=== PATIENT | female | born 1960 | race Asian ===

== ENCOUNTER 2021-07-19 01:06 | Inpatient (IN) | payer OTHER ==
[2021-07-19] VITALS (7 sets, daily range): BP systolic 106–128; BP diastolic 69–85
[~2021-07-19] VITALS: Ht 165.1 cm; Wt 59.9 kg
[2021-07-19] MEDS ORDERED: ONDANSETRON HCL/PF 4 MG/2 ML VIAL IVP PRN (01:30)
[2021-07-19] MEDS ORDERED: Z GUARD REMEDY 2 OZ OINT TP PRN (01:30)
[2021-07-19] MEDS ORDERED: ZOLPIDEM TARTRATE 5 MG TABLET PO PRN (01:30)
[2021-07-19] MEDS ORDERED: ACETAMINOPHEN 325 MG TABLET PO PRN (01:30)
--- NOTE | 2021-07-19 02:00 | NUR ---
TELE/RN ADMITTING NOTE RECEIVED REPORT FROM [facility] NIA CASTLE. PATIENT ARRIVED TO UNIT VIA GURNEY AND 2 EMT STAFF AT APPROX. 0120. PATIENT IS BEING ADMITTED FOR CHEST PAIN - WILL HAVE CARDIAC WORKUP AND STRESS TEST. PATIENT IS ALERT AND ORIENTED X 4. ABLE TO MAKE NEEDS KNOWN. DENIES PAIN AT THIS TIME. CONTINUES ON ROOM AIR WITH NO S/SX OF RESPIRATORY DISTRESS NOTED. IV ACCESS TO RIGHT AC #20G INTACT, PATENT AND SALINE LOCKED. TELE MONITOR CONNECTED WITH CURRENT READING SR HR 78. SKIN CHECK PERFORMED ON ADMISSION WITH NO SKIN ISSUES NOTED. PATIENT IS AMBULATORY WITH STEADY GAIT. PATIENT ORIENTED TO ROOM, CALL LIGHT AND UNIT. CALL LIGHT WITHIN REACH. ASPIRATION, FALL AND SAFETY PRECAUTIONS MAINTAINED. WILL CONTINUE TO MONITOR.
[2021-07-19] MEDS ORDERED: BUPR-96 PO (02:02)
[2021-07-19] MEDS: ENOXAPARIN SODIUM 40 MG/0.4 ML DISP.SYRIN SQ SCH ×2 (02:40→20:42)
--- NOTE | 2021-07-19 06:50 | NUR ---
TELE/RN CLOSING NOTE PATIENT CURRENTLY SLEEPING IN BED. ALERT AND ORIENTED X 4. ABLE TO MAKE NEEDS KNOWN. DENIES PAIN AT THIS TIME. CONTINUES ON ROOM AIR WITH NO S/SX OF RESPIRATORY DISTRESS NOTED. IV ACCESS TO RIGHT AC #20G INTACT, PATENT AND SALINE LOCKED. CONTINUES ON TELE MONITOR WITH CURRENT READING SR HR 63. CALL LIGHT WITHIN REACH. ASPIRATION, FALL AND SAFETY PRECAUTIONS MAINTAINED. WILL ENDORSE PLAN OF CARE TO ONCOMING SHIFT.
[2021-07-19 06:58] LABS: BASOPHILS % (AUTO) 0.8 % (0.0-2.0); EOSINOPHILS % (AUTO) 1.3 % (0.0-6.0); HEMATOCRIT 38 % (33-45); HEMOGLOBIN 12.7 g/dL (11.5-14.8); LYMPHOCYTES # (AUTO) 2.4 K/uL (0.8-4.8); LYMPHOCYTES % (AUTO) 40.5 % (20.0-44.0); MEAN CORPUSCULAR HGB CONC 33 g/dl (31.0-36.0); MEAN CORPUSCULAR VOLUME 97 fL (82-100); MONOCYTES # (AUTO) 0.4 K/uL (0.1-1.30); MONOCYTES % (AUTO) 7.2 % (2.0-12.0); NEUTROPHILS % (AUTO) 50.2 % (43.0-81.0); PLATELET COUNT (AUTO) 300 K/uL (150-450); RED BLOOD CELL COUNT(AUTO) 3.94 MIL/uL (4.0-5.2); WHITE BLOOD COUNT (AUTO) 5.9 K/uL (4.3-11.0)
[2021-07-19 07:27] LABS: ALBUMIN 3.6 g/dL (3.4-5.0); BILIRUBIN,TOTAL 0.5 mg/dL (0.2-1.0); CALCIUM, SERUM 8.8 mg/dL (8.5-10.1); CREATININE 0.7 mg/dL (0.6-1.3); MAGNESIUM 2.4 mg/dL (1.8-2.4); PHOSPHORUS 4.5 mg/dL (2.5-4.9); POTASSIUM 3.5 mmol/L (3.5-5.1)
[2021-07-19 07:35] LABS: THYROID STIMULATING HORMONE 3.24 uIU/mL (0.358-3.74)
--- NOTE | 2021-07-19 08:04 | NUR ---
TELE/RN OPENING NOTE RECEIVED PATIENT AWAKE. ALERT AND ORIENTED X 4. ABLE TO MAKE NEEDS KNOWN. DENIES PAIN AT THIS TIME. CONTINUES ON ROOM AIR WITH NO S/SX OF RESPIRATORY DISTRESS NOTED. IV ACCESS TO RIGHT AC #20G INTACT, PATENT AND SALINE LOCKED. CONTINUES ON TELE MONITOR WITH CURRENT READING SR HR 60'S. CALL LIGHT WITHIN REACH. ASPIRATION, FALL AND SAFETY PRECAUTIONS MAINTAINED. WILL CONTINUE TO MONITOR.
[2021-07-19] MEDS: ASPIRIN EC 81 MG TABLET.DR PO SCH (09:38)
[2021-07-19] MEDS ORDERED: METOPROLOL TARTRATE INJ 5 MG/5 ML AMPUL IVP PRN (11:30)
[2021-07-19] MEDS ORDERED: IOHEXOL-350 100 ML VIAL IV ONE (11:36)
[2021-07-19] MEDS ORDERED: IV NS 0.9% 250 ML IV ONE (11:37)
--- NOTE | 2021-07-19 11:45 | NUR ---
PATIENT FOR [facility]-AWAKE , ALERT IN NO ACUTE DISTRESS. DENIES CHEST PAIN AT THIS TIME. INSTRUCTED REGARDING PROCEDURE BY [employer] USED [employer] SUPERVISOR REGARDING PROCEDURE WITH FULL UNDERSTANDING.
--- NOTE | 2021-07-19 11:46 | NUR ---
TELE/RN NOTES- [facility] PATIENT WAS PICKED UP BY STAFF FOR A [facility]CA PROCEDURE. PATIENT IS ALERT AND ORIENTED X4, ABLE TO MAKE NEEDS KNOWN.
[2021-07-19] MEDS ORDERED: METOPROLOL TARTRATE INJ 5 MG/5 ML AMPUL ONE (11:53)
--- NOTE | 2021-07-19 11:55 | NUR ---
METOPROLOL 5 MG IVP FOR HR 65 GIVEN PER PROTOCOL.
--- NOTE | 2021-07-19 12:05 | NUR ---
PROCEDURE COMPLETED WITHOUT COMPLICATIONS. BACK TO FLOOR.
[2021-07-19] MEDS ORDERED: buPROPion SR 150 MG TABLET.ER PO SCH (12:30)
--- NOTE | 2021-07-19 19:34 | NUR ---
received in bed alert and orientated x4 smiling no chestpain or SOB noted or mentioned skin warm and dry SR on the monitor call light within her reach
[2021-07-19] MEDS ORDERED: ATORVASTATIN 40 MG TABLET PO SCH (22:00)
[2021-07-20] VITALS: BP 110/75
--- NOTE | 2021-07-20 04:59 | NUR ---
ENDING NOTES: ALERT AND ORIENTATED THIS 12 HOURS NO CHEST PAIN WHEN TALKING NO NOTED SHORT OF BREATH SMILING AND IN GOOD SPIRTIS MOVING ALL EXTREMITIES
[2021-07-20] MEDS: buPROPion SR 150 MG TABLET.ER PO SCH ×2 (06:53→07:05)
--- NOTE | 2021-07-20 07:30 | NUR ---
MS RN OPENING NOTES RECEIVED PATIENT AWAKE, SITTING ON BED AND A/O X4. ON ROOM AIR TOLERATING WELL. NO SOB NOTED. NOT IN DISTRESS. WITH NO COMPLAINTS OF PAIN AND DISCOMFORT AT THIS TIME. WITH IV ACCESS AT RIGHT AC G20, SALINE LOCKED, INTACT AND PATENT. SAFETY MEASURES IN PLACE. CALL LIGHT WITHIN REACH. BED ON LOWEST AND LOCKED POSITION, SIDE RAILS UP X2. WILL CONTINUE TO MONITOR.
[2021-07-20 08:00] VITALS: BP 109/72
[2021-07-20] MEDS: ASPIRIN EC 81 MG TABLET.DR PO SCH (08:42)
[2021-07-20 11:24] LABS: BASOPHILS % (AUTO) 0.9 % (0.0-2.0); HEMATOCRIT 40 % (33-45); HEMOGLOBIN 13.2 g/dL (11.5-14.8); LYMPHOCYTES # (AUTO) 1.4 K/uL (0.8-4.8); LYMPHOCYTES % (AUTO) 31.9 % (20.0-44.0); MEAN CORPUSCULAR HGB CONC 33 g/dl (31.0-36.0); MEAN CORPUSCULAR VOLUME 97 fL (82-100); MONOCYTES # (AUTO) 0.3 K/uL (0.1-1.30); MONOCYTES % (AUTO) 7.2 % (2.0-12.0); NEUTROPHILS # (AUTO) 2.6 K/uL (1.8-8.9); PLATELET COUNT (AUTO) 310 K/uL (150-450); RED BLOOD CELL COUNT(AUTO) 4.11 MIL/uL (4.0-5.2); WHITE BLOOD COUNT (AUTO) 4.4 K/uL (4.3-11.0)
[2021-07-20 12:24] LABS: CREATININE 0.7 mg/dL (0.6-1.3); MAGNESIUM 2.4 mg/dL (1.8-2.4); POTASSIUM 3.7 mmol/L (3.5-5.1)
--- NOTE | 2021-07-20 14:30 | NUR ---
MS POLICE AND FIRE DISPATCHER NOTES PATIENT IS FOR DISCHARGE PER DOCTOR AMANDA'S ORDER. FOR DISCHARGE TO HOME. DISCHARGE INSTRUCTION AND EDUCATION PROVIDED TO PATIENT AND EXPLAINED MEDICATIONS AND PRESCRIPTIONS. PATIENT VERBALIZED UNDERSTANDING. DISCHARGE FORM AND BELONGINGS LIST FORM SIGNED BY PATIENT. ALL BELONGINGS ACCOUNTED FOR. NAME WRIST BAND AND IV LINE REMOVED. ACCOMPANIED PATIENT TO THE [facility] IN STABLE CONDITION AND LEFT VIA GRAB. MD AND CHARGE NURSE ARE AWARE OF THE DISCHARGE.
== END 2021-07-20 14:30 | disposition home or self-care (01) | DRG 203 ==
LOC: TELE 01:06 → MED 07-20 10:39
PROVIDERS: ADMIT Nurse Practitioner Acute Care; ATTEND Student in an Organized Health Care Education/Training Program
DX: R07.89 Other chest pain (principal); E78.5 Hyperlipidemia, unspecified; R73.03 Prediabetes; R91.1 Solitary pulmonary nodule; K76.9 Liver disease, unspecified
CPT/HCPCS: 36415; 75574; 80048-TC; 80053-TC; 80061-TC; 83735-TC; 84100-TC; 84443-TC; 84484-TC; 85025-TC; 87081-TC; 93307-TC; G0378; J1650; J3490; J7050; Q9967